=== PATIENT | male | born 1935 | race Caucasian/White ===

== ENCOUNTER → 2018-02-01 | Outpatient (CLI) | payer MEDICARE ==
[~2018-02-01] MED LIST: ALEVE; CRS350T PO; GLUC-113 PO; HYDR-34 PO; NAPR220C11 PO; OXYC-12 PO; OXYC-272 PO; S-AD400T2 PO; [UNRECOGNIZED DRUG - CODE]; [UNRECOGNIZED DRUG - OTHER]
--- NOTE | 2018-02-01 14:13 | Diagnostic Imaging Report ---
PROCEDURE: MRI lumbar spine. TECHNIQUE: Multiplanar, multisequence MRI of the lumbar spine was performed without contrast. INDICATION: Prior history of lumbar surgery x7. Patient currently complaining of right-sided knee pain. Correlation is made with prior MRI of the lumbar spine performed on 07/25/2011. FINDINGS: Right convexity lumbar scoliotic curvature is noted. There is straightening of the normal lordotic curvature. Further surgery has occurred to the lumbar spine since the prior MRI from 2011. There now appears to be postop changes of posterior instrumented fusion with vertical stabilization rods and pedicle screws extending from L2-S2. Anterior lumbar interbody fusion is also seen at the L5-S1 level. Hardware does create moderate amount of artifact. Severe multilevel degenerative disc disease is seen with complete loss of the disc spaces and desiccation as well as marginal osteophyte formation. No acute compression fracture is seen. No geographic marrow lesion is detected. Conus is unremarkable at approximately T12-L1 level. Note is made of a fluid collection in the surgical bed at the L5-S1 level measuring 5.7 cm cephalocaudal x 2.6 cm AP x 4.0 cm transverse. This most likely represents a postsurgical seroma. No mass effect upon the thecal sac is identified. T11-T12: Broad based disc/osteophyte complex flattens the ventral thecal sac. There is moderate central canal narrowing noted. There also appears to be bilateral neuroforaminal stenosis, right greater. T12-L1: Ligamentous thickening and broad-based disc/osteophyte complex does result in moderate central canal narrowing. There is also moderate right neuroforaminal stenosis. L1-L2: There is ligamentous thickening and broad-based disc/osteophyte complex creating moderate trefoil stenosis to the canal. There also appears to be moderate right neuroforaminal stenosis as well as bilateral lateral recess stenosis. L2-L3: Central canal appears patent. Neuroforamina are patent. There may be narrowing of the lateral recesses bilaterally. L3-L4: Central canal appears patent. Neuroforamina are somewhat obscured by hardware artifact. L4-L5: Central canal is patent. Neuroforamina are obscured. There may be moderate narrowing present. L5-S1: Central canal is patent. Neuroforamina are somewhat obscured but no gross abnormality is seen. Paraspinous tissues demonstrate probable large cyst involving the lower pole of the left kidney. IMPRESSION: Since prior study, patient has undergone posterior instrumented fusion extending from L2-S2. There is multilevel central canal and neuroforaminal stenosis described level by level above. Findings are consistent with adjacent level disease. No acute compression fracture is identified. Dictated by: Dictated on workstation # [id number]
== END ==
LOC: RAD 12:49
PROVIDERS: ATTEND Orthopaedic Surgery
DX: M48.05 Spinal stenosis, thoracolumbar region (principal); M48.07 Spinal stenosis, lumbosacral region; M99.02 Segmental and somatic dysfunction of thoracic region; M41.86 Other forms of scoliosis, lumbar region; M51.16 Intervertebral disc disorders with radiculopathy, lumbar region; Z98.1 Arthrodesis status
CPT/HCPCS: 72148

== ENCOUNTER → 2018-02-12 | Outpatient (CLI) | payer MEDICARE ==
[~2018-02-12] MED LIST changes: +CATHETER FLUSH 10 ML SYR IV PRN
--- NOTE | 2018-02-12 15:39 | Diagnostic Imaging Report ---
INDICATION: Right knee pain. 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 TECHNIQUE: Patient was administered 26.5 mCi technetium 99m MDP intravenously and dynamic blood flow, blood pool and delayed imaging over the bilateral knees was performed. FINDINGS: There is symmetric perfusion to both knees. Blood pool activity appears to be symmetric. There is photopenia overlying both knees consistent with bilateral knee arthroplasties. Delayed images do show small focus of increased uptake in the right knee on the medial side, in the region of the right femoral epicondyle. No other abnormal foci of tracer accumulation are seen. IMPRESSION: No scintigraphic evidence of infection. There is a focus of uptake noted in the right knee in the region of the right femoral epicondyle, only seen on the delayed images. Correlation with plain films would be useful. Dictated by: Dictated on workstation # [id number]
== END ==
LOC: CARD 10:42
PROVIDERS: ATTEND Orthopaedic Surgery
DX: T84.032A Mechanical loosening of internal right knee prosthetic joint, initial encounter (principal)
CPT/HCPCS: 78315

== ENCOUNTER → 2018-12-25 | Outpatient (CLI) | payer MEDICARE ==
[~2018-12-25] MED LIST changes: -CATHETER FLUSH 10 ML SYR IV PRN
--- NOTE | 2018-12-25 11:51 | Diagnostic Imaging Report ---
EXAMINATION: Magnetic resonance imaging of the right shoulder without contrast. DATE: December 25, 2018. COMPARISON: None. HISTORY: 83-year-old male, right shoulder pain. Injury last week. TECHNIQUE: Magnetic Resonance Imaging sequences were performed of the shoulder without contrast. FINDINGS: ROTATOR CUFF, LIGAMENTS, TENDONS, AND MUSCLES: There is an anchor in the superior humeral head in the region of the supraspinatus tendon insertion. There is a full-thickness full width tear of the supraspinatus tendon with tendon retraction to the level of the superior humeral head. There is a full-thickness fullwidth tear the infraspinatus tendon with tendon retraction also to the level of the superior humeral head. The teres minor tendon is intact. The subscapularis tendon is intact. There is prominent edema like signal in the infraspinatus muscle most suspicious for low-grade muscle strain. Components of early denervation or edema would be difficult to exclude although thought less likely. There is mild fatty atrophy of the teres minor muscle. LONG HEAD OF BICEPS: The long of the biceps tendon is not well-seen in its intra-articular segment. The tendon may be torn and retracted within the bicipital groove. The long head of biceps tendon is normally positioned in the bicipital groove. The patient also could be status post biceps tenodesis. Recommend correlation with past surgical history. GLENOHUMERAL JOINT: The humeral head is well positioned relative to the glenoid. There is no definite discrete labral tear on non-arthrogram evaluation. There is no identified paralabral cyst. There is mild glenohumeral cartilage thinning with superficial irregularity of the cartilage. There is no joint effusion. ACROMIOCLAVICULAR JOINT: The acromioclavicular joint is normally aligned. The coracoclavicular and coracoacromial ligaments are intact. There are severe acromioclavicular degenerative changes with osteophytes extending approximately 6 mm below the joint margin. BONE: The bones all have normal configuration. The bone marrow signal is within normal limits. Specifically, negative for fracture, osteomyelitis, osteonecrosis, or marrow replacing process. BURSAE AND SOFT TISSUES: There is fluid in the subacromial subdeltoid bursa compatible with the full-thickness rotator cuff tendon tears, bursitis, and/or recent injection. There is a small amount of fluid extending above the level of the acromioclavicular joint likely relating to an early geyser measuring 2.1 x 0.7 x 0.7 cm in size. IMPRESSION: 1. Full-thickness fullwidth tears of the supraspinatus and infraspinatus tendons with tendon retraction to the level of the superior humeral head. No fatty atrophy of either muscle. Prominent edema like signal in the infraspinatus muscle likely reflects low-grade muscle strain. 2. Severe acromioclavicular degenerative changes with 5 mm undersurface osteophytes. 3. 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 4. The long of the biceps tendon is not well seen in its intra-articular segment and could be torn and retracted within the bicipital groove. The patient also could be status post biceps tenodesis. Recommend correlation with past surgical history. 5. No acute fracture, bone contusion, or evidence of osteonecrosis. Dictated by: Dictated on workstation # [id number]
== END ==
LOC: RAD 09:16
PROVIDERS: ATTEND Nurse Practitioner
DX: S46.011A Strain of muscle(s) and tendon(s) of the rotator cuff of right shoulder, initial encounter (principal); M19.011 Primary osteoarthritis, right shoulder; M25.711 Osteophyte, right shoulder
CPT/HCPCS: 73221

== ENCOUNTER 2019-01-13 09:48 | Outpatient (CLI) | payer MEDICARE ==
[~2019-01-13] VITALS: Ht 188 cm; Wt 102.8 kg
[2019-01-13 10:02] VITALS: BP 169/80
[2019-01-15] MEDS ORDERED: CYAN50008 PO (10:49)
[2019-01-15] MEDS ORDERED: NAPR220T66 PO (10:49)
[2019-01-15] MEDS ORDERED: ACET-2267 PO (10:49)
[2019-01-15] MEDS ORDERED: ACET-2650 PO (10:49)
[2019-01-15] MEDS ORDERED: OXYC1TAB87 PO (14:37)
== END 2019-01-13 12:41 | disposition home or self-care (01) ==
LOC: PREOP 09:48
PROVIDERS: ATTEND Orthopaedic Surgery
DX: Z01.818 Encounter for other preprocedural examination (principal)
CPT/HCPCS: 87081

== ENCOUNTER 2019-03-26 13:41 | Outpatient (RCR) | payer MEDICARE ==
[~2019-03-26 13:41] MED LIST changes: +ACET-2267 PO; +ACET-2650 PO; +CYAN50008 PO; +NAPR220T66 PO; +OXYC1TAB87 PO
== END 2019-03-26 17:00 | disposition home or self-care (01) ==
PROVIDERS: ATTEND Orthopaedic Surgery
DX: M25.511 Pain in right shoulder (principal); Z98.890 Other specified postprocedural states

== ENCOUNTER 2019-05-14 06:15 | Outpatient (CLI) | payer MEDICARE ==
[~2019-05-14] VITALS: Ht 182.9 cm; Wt 111.8 kg
== END 2019-05-14 10:53 | disposition home or self-care (01) ==
LOC: PREOP 06:15
PROVIDERS: ATTEND Surgery
DX: Z01.818 Encounter for other preprocedural examination (principal)

== ENCOUNTER 2019-06-05 05:29 | Outpatient (CLI) | payer MEDICARE ==
[~2019-06-05] VITALS: Ht 175.3 cm; Wt 110.0 kg
== END 2019-06-05 11:08 | disposition home or self-care (01) ==
LOC: PREOP 05:29
PROVIDERS: ATTEND Surgery
DX: Z01.818 Encounter for other preprocedural examination (principal)

== ENCOUNTER 2019-06-06 10:48 | Day surgery (SDC) | payer MEDICARE ==
[~2019-06-06] VITALS: Ht 175.3 cm; Wt 110.0 kg
[2019-06-06] VITALS (8 sets, daily range): BP systolic 118–176; BP diastolic 70–110
[2019-06-06] MEDS ORDERED: FLEET ENEMA ADULT 1 EA BTL PR PRN (11:15)
--- NOTE | 2019-06-06 11:16 | Progress Note-Pre Operative ---
Pre-Operative Progress Note H&P Reviewed The H&P was reviewed, patient examined and no changes noted. Date Seen by Provider: Jun 06, 2019 Time Seen by Provider: 11:16 Date H&P Reviewed: Jun 06, 2019 Time H&P Reviewed: 11:16 Pre-Operative Diagnosis: anal mass DAVIN DELACRUZ DO Jun 06, 2019 11:16
[2019-06-06] MEDS ORDERED: LACTATED RINGERS 1,000 ML IV PRN (11:17)
[2019-06-06] MEDS ORDERED: PROPOFOL INJECTION 50 ML IV ONE (11:23)
--- NOTE | 2019-06-06 13:11 | Progress Note-Post Operative ---
Post-Operative Progess Note Surgeon (s)/Cot Assembler (s) Surgeon DAVIN DELACRUZ DO Cot Assembler: na Pre-Operative Diagnosis anal mass Post-Operative Diagnosis same Procedure & Operative Findings Date of Procedure 06/06/19 Procedure Performed/Findings exam under anesthesia, flex sig, biopsies of anal mass Anesthesia Type mac Estimated Blood Loss Estimated blood loss (mL): min Specimens/Packing Specimens Removed anal mass DAVIN DELACRUZ DO Jun 06, 2019 13:11
--- NOTE | 2019-06-06 13:13 | Discharge Inst-Simple/Standard ---
Discharge Inst-Standard Patient Instructions/Follow Up Plan of Care/Instructions/FU: 1 week Tasia Activity as Tolerated: Yes Discharge Diet: Regular Diet Other Inst to Patient Follow up Appt: Make appointment for 1 week. Instructions: You have a special dressing just inside the anus, allow this to stay as long as you can. You will pass it like a bowel movement later. Symptoms to Report: Appetite Changes, Extremity Discoloration, Numbness/Tingling, Swelling Incre ased, Bleeding Excessive, Eyesight Changes, Pain Increased, Urine Color Change, Constipation(Persistent), Fever over 101 degree F, Pain/Pressure in chest, Urinating Difficulty, Cough Up/Vomit Blood, Heart Beat Irreg/Pounding, Pain/Pressure in jaw, Vaginal Bleeding Increase, Cramps in feet or legs, Lightheadedness, Pain/Pressure in shoulder, Diarrhea(Persistent), Memory Changes Suddenly, Questions/Concerns, Weight gain consecutive days, Dizziness/Fainting, Nausea/Vomiting, Shortness of Breath, Weight gain over 2 pounds If questions or concerns contact your physician Or seek help at emergency department. DAVIN DELACRUZ DO Jun 06, 2019 13:13
--- NOTE | 2019-06-06 21:50 | OPERATIVE REPORT ---
DATE OF SERVICE: 06/06/2019 PREOPERATIVE DIAGNOSIS: Anal mass. POSTOPERATIVE DIAGNOSIS: Anal mass. PROCEDURE: Exam under anesthesia, flexible sigmoidoscopy, biopsies of anal mass. SURGEON: Davin Dozier DO ANESTHESIA: MAC. ESTIMATED BLOOD LOSS: Minimal. COMPLICATIONS: None. 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 It was recommended that further biopsies to be taken. The patient understands risks and benefits of procedure and wished to proceed with procedure. Consent was signed in the chart. DESCRIPTION OF PROCEDURE: The patient was taken to the operating suite, placed in lithotomy position. Timeout was performed. Scope was inserted into the rectum and advanced through the rectum into the sigmoid, noting no other pathology. Scope was slowly retracted back through the sigmoid back into the rectum, where it was also retroflexed. A small piece of mass was visualized just at the anorectal junction. Biopsy of this area was obtained. Scope was returned to its normal position, slowly withdrawn through the anus taking multiple biopsies. Digital rectal exam was done demonstrating a large left-sided inguinal mass. Retractor was inserted through the anus and the mass was visualized and multiple biopsies were continued to be obtained from the anal mass. Once the biopsies were obtained, Gelfoam with Surgicel was placed into the anal canal to apply pressure to help with hemostasis. The patient tolerated procedure well without any complications. He was taken to the recovery room in stable condition. Job ID: [id number] DocumentID: [id number] Dictated Date: 06/06/2019 13:16:40 Director Instructional Material Date: 06/06/2019 21:49:44 Dictated By: DAVIN DOZIER DO
== END 2019-06-06 14:20 | disposition home or self-care (01) ==
LOC: SDC 10:48
PROVIDERS: ATTEND Surgery
DX: C21.0 Malignant neoplasm of anus, unspecified (principal); Z11.2 Encounter for screening for other bacterial diseases; Z87.891 Personal history of nicotine dependence; E66.9 Obesity, unspecified; Z68.35 Body mass index [BMI] 35.0-35.9, adult; Z96.653 Presence of artificial knee joint, bilateral; Z96.641 Presence of right artificial hip joint; Z96.611 Presence of right artificial shoulder joint
CPT/HCPCS: 87081

== ENCOUNTER → 2019-06-09 | Outpatient (CLI) | payer MEDICARE ==
[~2019-06-09] MED LIST changes: +GADOBUTROL 10 MMOL/10 ML (GADAVIST) VIAL IV ONE
--- NOTE | 2019-06-10 09:49 | Diagnostic Imaging Report ---
PROCEDURE: MRI pelvis with and without contrast. TECHNIQUE: Multiplanar, multisequence MRI of the pelvis was performed with and without contrast. INDICATION: Anal mass. COMPARISON: CT abdomen and pelvis of 05/20/2019. FINDINGS: Within the anal canal, there is a somewhat pedunculated ovoid T2 hyperintense mass located along the left leilani-aspect of the anal canal. This measures approximately 3.6 x 1.7 x 4.2 cm and extends over the entire craniocaudal length of the anal canal up to level of the anorectal junction. The mass has smooth margins and inferior margin of the mass is at the level the anal verge. On postcontrast imaging, there is minimal peripheral rim enhancement of the mass. There is no invasion into the external anal sphincter. There is potential involvement of the internal anal sphincter. The internal anal sphincter plane remains normal. No lymphadenopathy within the mesorectal fat. T2 hyperintense mass with thick rim measures 5.5 x 3.3 cm. No additional lymphadenopathy is appreciated. IMPRESSION: 1. Circumscribed mass within the anal canal likely arises from the mucosa along the anterior and/or left leilani-aspect. No invasion of the intersphincteric plane or external anal sphincter. Given the circumscribed nature and lack of invasive features, differential considerations would include a low-grade carcinoma of the anal canal, gastrointestinal stromal tumor (GIST) or potentially leiomyoma. Correlation with physical exam and biopsy is advised. 2. Left inguinal thick-walled fluid collection/necrotic lymph node is stable. Correlation with patient's surgical history is advised. 3. No mesorectal lymphadenopathy. Dictated by: Dictated on workstation # [id number]
== END ==
LOC: RAD 09:21
PROVIDERS: ATTEND Internal Medicine Hematology & Oncology
DX: K62.89 Other specified diseases of anus and rectum (principal)
CPT/HCPCS: 72197

== ENCOUNTER 2019-06-23 10:02 | Outpatient (CLI) | payer MEDICARE ==
[~2019-06-23] VITALS: Ht 177.8 cm; Wt 110.0 kg
[~2019-06-23 10:02] MED LIST changes: -GADOBUTROL 10 MMOL/10 ML (GADAVIST) VIAL IV ONE
== END 2019-06-23 10:19 | disposition home or self-care (01) ==
LOC: PREOP 10:02
PROVIDERS: ATTEND Surgery
DX: Z01.818 Encounter for other preprocedural examination (principal)

== ENCOUNTER 2019-06-26 10:47 | Day surgery (SDC) | payer MEDICARE ==
[2019-06-26] VITALS (7 sets, daily range): BP systolic 133–168; BP diastolic 53–72
[~2019-06-26] VITALS: Ht 177.8 cm; Wt 110.0 kg
[2019-06-26] MEDS ORDERED: proPOfol 200 MG/20 ML (DIPRIVAN) VIAL IV ONE (10:51)
[2019-06-26] MEDS ORDERED: LIDOCAINE PF 2% 5 ML (XYLOCAINE) VIAL ONE (10:51)
[2019-06-26] MEDS ORDERED: LACTATED RINGERS 1,000 ML IV PRN (10:55)
[2019-06-26] MEDS ORDERED: 0.9% SODIUM CHLORIDE PF INJ 20 ML VIAL ONE (11:00)
[2019-06-26] MEDS ORDERED: HEParin (CENTRAL IV FLUSH) 500 UNIT/5 ML SYR ONE (11:00)
[2019-06-26] MEDS ORDERED: BUP/EPI 0.5% 1:200,000 (SENSORCAINE) 30 ML VIAL ONE (11:00)
[2019-06-26] MEDS ORDERED: ceFAZolin 2 GM/50 ML NS 50 ML IV ONE (11:00)
[2019-06-26] MEDS ORDERED: MIDAZOLAM 2 MG/2 ML (VERSED) VIAL ONE (11:11)
--- NOTE | 2019-06-26 11:30 | Progress Note-Pre Operative ---
Pre-Operative Progress Note H&P Reviewed The H&P was reviewed, patient examined and no changes noted. Date Seen by Provider: Jun 26, 2019 Time Seen by Provider: 11: Date H&P Reviewed: Jun 26, 2019 Time H&P Reviewed: : Pre-Operative Diagnosis: anal cancer DAVIN DELACRUZ DO Jun 26, 2019 11:30
--- NOTE | 2019-06-26 11:47 | NUR ---
Escorted pt's to his room. She reminded me that I visited her in the hospital 2 years ago as she recovered from a stroke. Offered supportive presence.
--- NOTE | 2019-06-26 12:08 | Progress Note-Post Operative ---
Post-Operative Progess Note Surgeon (s)/Credit Clerk (s) Surgeon DAVIN DELACRUZ DO Credit Clerk: NA Pre-Operative Diagnosis anal cancer Post-Operative Diagnosis SAME Procedure & Operative Findings Date of Procedure 06/26/19 Procedure Performed/Findings RIGHT IJ U/S GUIDED PORT PLACEMENT Anesthesia Type MAC C GEN Estimated Blood Loss Estimated blood loss (mL): MIN Specimens/Packing Specimens Removed NA DAVIN DELACRUZ DO Jun 26, 2019 12:08
--- NOTE | 2019-06-26 12:14 | Discharge Inst-Simple/Standard ---
Discharge Inst-Standard Patient Instructions/Follow Up Plan of Care/Instructions/FU: 2 WEEKS JAYME Activity as Tolerated: No Discharge Diet: Regular Diet Other Inst to Patient Follow up Appt: Make appointment for 2 week. Instructions: No lifting greater than 10 pounds. No strenuous activity. May shower in 24 hours, no tub bath or soaking. Use incentive spirometer at home as directed. No Smoking Skin/Wound Care: May remove bandages IN 24 HOURS, YOU HAVE SPECIAL GLUE OVER INCISIONS IT WILL FALL OFF ON ITS OWN. Symptoms to Report: Appetite Changes, Extremity Discoloration, Numbness/Tingling, Swelling Increased, Bleeding Excessive, Eyesight Changes, Pain Increased, Urine Color Change, Constipation(Persistent), Fever over 101 degree F, Pain/Pressure in chest, Urinating Difficulty, Cough Up/Vomit Blood, Heart Beat Irreg/Pounding, Pain/Pressure in jaw, Vaginal Bleeding Increase, Cramps in feet or legs, Lightheadedness, Pain/Pressure in shoulder, Diarrhea(Persistent), Memory Changes Suddenly, Questions/Concerns, Weight gain consecutive days, Dizziness/Fainting, Nausea/Vomiting, Shortness of Breath, Weight gain over 2 pounds If questions or concerns contact your physician Or seek help at emergency department. DAVIN DELACRUZ DO Jun 26, 2019 12:14
[2019-06-26] MEDS ORDERED: ONDANSETRON 4 MG/2 ML (SDV) Z0FRAN IVP PRN (12:15)
[2019-06-26] MEDS ORDERED: HYDROmorphone 2 MG/ML VIAL (DILAUDID) IV ONE (12:15)
--- NOTE | 2019-06-26 12:41 | Diagnostic Imaging Report ---
INDICATION: Postop Port-A-Cath placement. TECHNIQUE: Frontal chest obtained at 12:32 p.m. and compared to 11/21/2012. FINDINGS: Heart is borderline in size. Mediastinal silhouette is unremarkable. The lungs are clear. There is no pneumothorax or pleural fluid. Right-sided Port-A-Cath is seen with catheter entering the right internal jugular vein and catheter tip overlying the right brachiocephalic vein. IMPRESSION: Port-A-Cath in place, as above. No pneumothorax or pleural fluid following device placement. Dictated by: Dictated on workstation # [id number]
--- NOTE | 2019-06-26 13:04 | Diagnostic Imaging Report ---
INDICATION: Fluoroscopy for port placement. Fluoroscopy was provided in the OR during right chest wall port placement. 33 seconds of fluoroscopy was utilized. A single image demonstrates a right chest wall port with tip overlying the SVC. IMPRESSION: Fluoroscopy for port placement. Dictated by: Dictated on workstation # [id number]
--- NOTE | 2019-06-27 00:14 | OPERATIVE REPORT ---
DATE OF SERVICE: 06/26/2019 PREOPERATIVE DIAGNOSIS: Anal cancer. POSTOPERATIVE DIAGNOSIS: Anal cancer. PROCEDURE: Right internal jugular vein ultrasound-guided port placement. SURGEON: Ra Dozier DO ANESTHESIA: MAC with local. ESTIMATED BLOOD LOSS: Minimal. COMPLICATIONS: None. INDICATIONS: The patient is an 83-year-old male with recent diagnosis of anal cancer. He understands risks and benefits of port placement and wishes to proceed. Consent was signed and on the chart. DESCRIPTION OF PROCEDURE: The patient was prepped and draped in sterile fashion. Timeout was performed. Local anesthetic was infiltrated in the right neck. Ultrasound was used to locate the right internal jugular vein and the vein was then accessed under ultrasound guidance with micro access needle. Dark nonpulsatile blood was withdrawn. Micro access wire was inserted and the needle was removed. Fluoroscopy assured proper placement. A #11 blade scalpel was used to make a small skin incision at the insertion site of the guidewire. A dilator was then advanced over the wire and the guidewire and the dilator were removed. The sheath was left behind. The regular guidewire was inserted through the sheath and the sheath was then removed. Fluoroscopy assured proper placement. This was then secured. Local anesthetic was infiltrated on to the right chest. A pocket was created with a #15 blade scalpel and blunt dissection. Over the guidewire, the dilator sheath was then advanced over the guidewire and the dilator and the wire were removed. The Groshong catheter was inserted through the sheath and the sheath was then removed. The wire was then removed from the Groshong catheter. The catheter was then tunneled from the insertion point down to the right chest and this was then cut to length using fluoroscopy. The port was then attached in the usual fashion and it was placed within the pocket. The port was then accessed, nonpulsatile blood was withdrawn and the port was then flushed with saline and then heparin. The subcutaneous tissues were then reapproximated using 3-0 Vicryl. Skin was then closed using Skin Affix after the area was washed and dried and also Skin Affix was placed over the incision on the neck. The patient tolerated procedure well without any complications and taken to the recovery room in stable condition. Chest x-ray is pending. Job ID: [id number] DocumentID: [id number] Dictated Date: 06/26/2019 19:22:44 [employer] Date: 06/27/2019 00:14:04 Dictated By: DO RANDI HERNANDEZ
== END 2019-06-26 13:25 | disposition home or self-care (01) ==
LOC: SDC 10:47
PROVIDERS: ATTEND Surgery
DX: C21.0 Malignant neoplasm of anus, unspecified (principal); K62.5 Hemorrhage of anus and rectum; Z79.899 Other long term (current) drug therapy; Z79.82 Long term (current) use of aspirin; Z87.891 Personal history of nicotine dependence; Z90.89 Acquired absence of other organs; Z80.9 Family history of malignant neoplasm, unspecified; Z83.3 Family history of diabetes mellitus
CPT/HCPCS: 71045; 87081

== ENCOUNTER → 2019-06-30 | Outpatient (CLI) | payer MEDICARE ==
--- NOTE | 2019-06-28 09:31 | Anesthesia-General Post-Op ---
MAC Patient Condition Mental Status/LOC: Same as Preop Cardiovascular: Satisfactory Nausea/Vomiting: Absent Respiratory: Satisfactory Pain: Controlled Complications: Absent Post Op Complications Complications None Follow Up Care/Instructions Patient Instructions None needed. Anesthesiology Discharge Order Discharge Order Patient is doing well, no complaints, stable vital signs, no apparent adverse anesthesia problems. No complications reported per nursing. SEGUN MACEDO CRNA Jun 28, 2019 09:31
[~2019-06-30] MED LIST changes: +HOLD METFORMIN - RECEIVED CONTRAST 20 ML VIAL IV SCH; +IOHEXOL 350 MG/ML 100 ML (OMNIPAQUE 350) VIAL IV ONE; +NS 100 ML (IVPB) BAG IV ONE
--- NOTE | 2019-06-30 13:47 | Diagnostic Imaging Report ---
PROCEDURE: CT chest with contrast only. TECHNIQUE: Multiple contiguous axial images were obtained through the chest after administration of intravenous contrast. Auto Exposure Controls were utilized during the CT exam to meet ALARA standards for radiation dose reduction. DATE: June 30, 2019. COMPARISON: Chest radiograph June 26, 2019. INDICATION: 83-year-old male, history of anal malignancy. Evaluation for metastatic disease. FINDINGS: There is a 4 mm calcified benign left lower lobe granuloma. There is no identified noncalcified pulmonary nodule. There is no lung mass. There is no otherwise identified focal airspace consolidation. There is no pneumothorax. There is no pleural effusion. The central airways are patent. There are coronary artery calcifications. There are additional areas of atherosclerotic disease. The heart is not enlarged. There is no pericardial effusion. There is no identified pulmonary embolus. There is no identified abnormally enlarged mediastinal, hilar, or axillary lymph node meeting CT size criteria for adenopathy. The patient is status post cholecystectomy. There is a benign right renal cyst on axial image 138 which measures 3.0 cm in size. There is an incompletely imaged cystic lesion in the left kidney measuring up to 6.0 cm in size which has a thin internal septation. Imaging appearances consistent with a benign Bosniak category 2 benign renal cyst in its imaged portions; however, the lesion cannot be definitively characterized as it is incompletely imaged. There are postoperative changes of the lumbar spine. There are multilevel advanced degenerative changes of the thoracic spine. There are anchors in the right and left humeral heads. There is no identified and concerning bone lesion. IMPRESSION: CT CHEST. 1. No evidence of metastatic disease to the chest. Dictated by: Dictated on workstation # [id number]
== END ==
LOC: RAD 09:17
PROVIDERS: ATTEND Surgery
DX: C21.0 Malignant neoplasm of anus, unspecified (principal)
CPT/HCPCS: 71260

== ENCOUNTER 2019-08-15 08:30 | Outpatient (RCR) | payer MEDICARE ==
[2019-06-30 09:53] LABS: BASOPHILS % (AUTO) 1 % (0-10); EOSINOPHILS # (AUTO) 0.3 10^3/uL (0.0-0.3); EOSINOPHILS % (AUTO) 4 % (0-10); HEMATOCRIT 41 % (40-54); HEMOGLOBIN 13.2 G/DL (13.3-17.7); LYMPHOCYTES # (AUTO) 2.2 X 10^3 (1.0-4.0); LYMPHOCYTES % (AUTO) 31 % (12-44); MEAN CORPUSCULAR HEMOGLOBIN 31 PG (25-34); MEAN CORPUSCULAR HGB CONC 32 G/DL (32-36); MEAN CORPUSCULAR VOLUME 97 FL (80-99); MEAN PLATELET VOLUME 12.6 FL (7.4-10.4); MONOCYTES # (AUTO) 0.6 X 10^3 (0.0-1.0); MONOCYTES % (AUTO) 9 % (0-12); NEUTROPHILS # (AUTO) 4.1 X 10^3 (1.8-7.8); NEUTROPHILS % (AUTO) 56 % (42-75); PLATELET COUNT 143 10^3/uL (130-400); RED CELL DISTRIBUTION WIDTH 13.8 % (10.0-14.5); WHITE BLOOD COUNT 7.3 10^3/uL (4.3-11.0)
[2019-06-30 10:10] LABS: ALBUMIN 4.3 GM/DL (3.2-4.5); BILIRUBIN,TOTAL 0.6 MG/DL (0.1-1.0); CALCIUM 9.8 MG/DL (8.5-10.1); CREATININE SERUM 1.32 MG/DL (0.60-1.30); MAGNESIUM 2.5 MG/DL (1.6-2.4); POTASSIUM 4.8 MMOL/L (3.6-5.0); TOTAL PROTEIN 7.7 GM/DL (6.4-8.2)
[2019-07-14 14:43] LABS: BASOPHILS % (AUTO) 1 % (0-10); EOSINOPHILS # (AUTO) 0.3 10^3/uL (0.0-0.3); EOSINOPHILS % (AUTO) 4 % (0-10); HEMATOCRIT 38 % (40-54); LYMPHOCYTES # (AUTO) 2.4 X 10^3 (1.0-4.0); LYMPHOCYTES % (AUTO) 34 % (12-44); MEAN CORPUSCULAR HEMOGLOBIN 31 PG (25-34); MEAN CORPUSCULAR HGB CONC 32 G/DL (32-36); MEAN CORPUSCULAR VOLUME 97 FL (80-99); MONOCYTES # (AUTO) 0.7 X 10^3 (0.0-1.0); MONOCYTES % (AUTO) 10 % (0-12); NEUTROPHILS # (AUTO) 3.7 X 10^3 (1.8-7.8); NEUTROPHILS % (AUTO) 52 % (42-75); PLATELET COUNT 147 10^3/uL (130-400); RED CELL DISTRIBUTION WIDTH 13.9 % (10.0-14.5); WHITE BLOOD COUNT 7.2 10^3/uL (4.3-11.0)
[2019-07-14 15:11] LABS: BILIRUBIN,TOTAL 0.3 MG/DL (0.1-1.0); CALCIUM 9.1 MG/DL (8.5-10.1); CREATININE SERUM 1.61 MG/DL (0.60-1.30); POTASSIUM 4.9 MMOL/L (3.6-5.0); TOTAL PROTEIN 7.4 GM/DL (6.4-8.2)
[2019-07-21 09:14] LABS: BASOPHILS % (AUTO) 0 % (0-10); EOSINOPHILS # (AUTO) 0.2 10^3/uL (0.0-0.3); EOSINOPHILS % (AUTO) 4 % (0-10); HEMATOCRIT 36 % (40-54); HEMOGLOBIN 11.3 G/DL (13.3-17.7); LYMPHOCYTES # (AUTO) 0.8 X 10^3 (1.0-4.0); LYMPHOCYTES % (AUTO) 18 % (12-44); MEAN CORPUSCULAR HEMOGLOBIN 31 PG (25-34); MEAN CORPUSCULAR HGB CONC 32 G/DL (32-36); MEAN CORPUSCULAR VOLUME 98 FL (80-99); MEAN PLATELET VOLUME 12.2 FL (7.4-10.4); MONOCYTES # (AUTO) 0.1 X 10^3 (0.0-1.0); MONOCYTES % (AUTO) 2 % (0-12); NEUTROPHILS # (AUTO) 3.4 X 10^3 (1.8-7.8); NEUTROPHILS % (AUTO) 76 % (42-75); PLATELET COUNT 111 10^3/uL (130-400); WHITE BLOOD COUNT 4.5 10^3/uL (4.3-11.0)
[2019-07-21 09:29] LABS: CREATININE SERUM 1.29 MG/DL (0.60-1.30); POTASSIUM 4.7 MMOL/L (3.6-5.0)
[2019-07-28 09:13] LABS: BASOPHILS % (AUTO) 0 % (0-10); EOSINOPHILS # (AUTO) 0.6 10^3/uL (0.0-0.3); EOSINOPHILS % (AUTO) 20 % (0-10); HEMATOCRIT 33 % (40-54); HEMOGLOBIN 10.5 G/DL (13.3-17.7); LYMPHOCYTES # (AUTO) 0.8 X 10^3 (1.0-4.0); LYMPHOCYTES % (AUTO) 30 % (12-44); MEAN CORPUSCULAR HEMOGLOBIN 31 PG (25-34); MEAN CORPUSCULAR HGB CONC 32 G/DL (32-36); MEAN CORPUSCULAR VOLUME 97 FL (80-99); MEAN PLATELET VOLUME 11.4 FL (7.4-10.4); MONOCYTES # (AUTO) 0.4 X 10^3 (0.0-1.0); MONOCYTES % (AUTO) 14 % (0-12); NEUTROPHILS % (AUTO) 36 % (42-75); PLATELET COUNT 42 10^3/uL (130-400); RED CELL DISTRIBUTION WIDTH 13.1 % (10.0-14.5); WHITE BLOOD COUNT 2.8 10^3/uL (4.3-11.0)
[2019-07-28 09:26] LABS: CALCIUM 8.9 MG/DL (8.5-10.1); CREATININE SERUM 1.38 MG/DL (0.60-1.30); POTASSIUM 4.3 MMOL/L (3.6-5.0)
[2019-08-04 08:59] LABS: BASOPHILS % (AUTO) 1 % (0-10); EOSINOPHILS # (AUTO) 0.2 10^3/uL (0.0-0.3); EOSINOPHILS % (AUTO) 5 % (0-10); HEMATOCRIT 33 % (40-54); HEMOGLOBIN 10.6 G/DL (13.3-17.7); LYMPHOCYTES # (AUTO) 0.7 X 10^3 (1.0-4.0); LYMPHOCYTES % (AUTO) 17 % (12-44); MEAN CORPUSCULAR HEMOGLOBIN 31 PG (25-34); MEAN CORPUSCULAR HGB CONC 32 G/DL (32-36); MEAN CORPUSCULAR VOLUME 97 FL (80-99); MEAN PLATELET VOLUME 11.1 FL (7.4-10.4); MONOCYTES # (AUTO) 0.8 X 10^3 (0.0-1.0); MONOCYTES % (AUTO) 19 % (0-12); NEUTROPHILS # (AUTO) 2.3 X 10^3 (1.8-7.8); NEUTROPHILS % (AUTO) 58 % (42-75); PLATELET COUNT 168 10^3/uL (130-400); RED CELL DISTRIBUTION WIDTH 14.3 % (10.0-14.5)
[2019-08-04 09:20] LABS: CALCIUM 9.3 MG/DL (8.5-10.1); CREATININE SERUM 1.27 MG/DL (0.60-1.30); POTASSIUM 4.2 MMOL/L (3.6-5.0)
[2019-08-08 08:42] LABS: BASOPHILS % (AUTO) 1 % (0-10); EOSINOPHILS # (AUTO) 0.2 10^3/uL (0.0-0.3); EOSINOPHILS % (AUTO) 4 % (0-10); HEMATOCRIT 32 % (40-54); HEMOGLOBIN 10.4 G/DL (13.3-17.7); LYMPHOCYTES # (AUTO) 0.5 X 10^3 (1.0-4.0); LYMPHOCYTES % (AUTO) 11 % (12-44); MEAN CORPUSCULAR HEMOGLOBIN 32 PG (25-34); MEAN CORPUSCULAR HGB CONC 32 G/DL (32-36); MEAN CORPUSCULAR VOLUME 99 FL (80-99); MEAN PLATELET VOLUME 10.7 FL (7.4-10.4); MONOCYTES # (AUTO) 0.6 X 10^3 (0.0-1.0); MONOCYTES % (AUTO) 14 % (0-12); NEUTROPHILS # (AUTO) 3.4 X 10^3 (1.8-7.8); NEUTROPHILS % (AUTO) 72 % (42-75); PLATELET COUNT 202 10^3/uL (130-400); RED CELL DISTRIBUTION WIDTH 14.5 % (10.0-14.5); WHITE BLOOD COUNT 4.8 10^3/uL (4.3-11.0)
[2019-08-08 09:01] LABS: ALBUMIN 3.8 GM/DL (3.2-4.5); BILIRUBIN,TOTAL 0.3 MG/DL (0.1-1.0); CALCIUM 8.9 MG/DL (8.5-10.1); CREATININE SERUM 1.18 MG/DL (0.60-1.30); POTASSIUM 4.1 MMOL/L (3.6-5.0); TOTAL PROTEIN 6.9 GM/DL (6.4-8.2)
[~2019-08-15] VITALS: Ht 175.3 cm; Wt 108.9 kg
[~2019-08-15 08:30] MED LIST changes: +DEXAMETHASONE IV PRN; +FLUOROURACIL IV SCH; -HOLD METFORMIN - RECEIVED CONTRAST 20 ML VIAL IV SCH; -IOHEXOL 350 MG/ML 100 ML (OMNIPAQUE 350) VIAL IV ONE; +MITOMYCIN IV SCH; -NS 100 ML (IVPB) BAG IV ONE; +NS IV 1000 ML (CANCER CTR) IV SCH; +NS IV SCH; +ONDANSETRON IV PRN; +[UNRECOGNIZED DRUG - OTHER] IV PRN
[2019-08-18 09:04] LABS: BASOPHILS % (AUTO) 0 % (0-10); EOSINOPHILS # (AUTO) 0.2 10^3/uL (0.0-0.3); EOSINOPHILS % (AUTO) 13 % (0-10); HEMATOCRIT 32 % (40-54); HEMOGLOBIN 10.5 G/DL (13.3-17.7); LYMPHOCYTES # (AUTO) 0.1 X 10^3 (1.0-4.0); LYMPHOCYTES % (AUTO) 8 % (12-44); MEAN CORPUSCULAR HEMOGLOBIN 32 PG (25-34); MEAN CORPUSCULAR HGB CONC 33 G/DL (32-36); MEAN CORPUSCULAR VOLUME 98 FL (80-99); MEAN PLATELET VOLUME 11.2 FL (7.4-10.4); MONOCYTES # (AUTO) 0.1 X 10^3 (0.0-1.0); MONOCYTES % (AUTO) 5 % (0-12); NEUTROPHILS # (AUTO) 1.3 X 10^3 (1.8-7.8); NEUTROPHILS % (AUTO) 74 % (42-75); PLATELET COUNT 98 10^3/uL (130-400); RED CELL DISTRIBUTION WIDTH 14.7 % (10.0-14.5); WHITE BLOOD COUNT 1.8 10^3/uL (4.3-11.0)
[2019-08-18 09:23] LABS: CALCIUM 9.1 MG/DL (8.5-10.1); CREATININE SERUM 1.48 MG/DL (0.60-1.30); POTASSIUM 4.2 MMOL/L (3.6-5.0)
== END 2019-08-18 09:28 | disposition home or self-care (01) ==
LOC: ONC 08:30
PROVIDERS: ATTEND Internal Medicine Hematology & Oncology
DX: D01.3 Carcinoma in situ of anus and anal canal (principal)
CPT/HCPCS: 36591; 77290; 77300; 77301; 77307; 77334; 77336; 77338; 77386; 77470; 80048; 80053; 82378; 83735; 85025; 96375; 96409; 96416; 99204; 99213; 99214; J9290

== ENCOUNTER → 2019-08-18 | Outpatient (CLI) | payer MEDICARE ==
[~2019-08-18] MED LIST changes: -DEXAMETHASONE IV PRN; -FLUOROURACIL IV SCH; -MITOMYCIN IV SCH; +NS IV 1000 ML (CANCER CTR) 1,000 ML ONE; -NS IV 1000 ML (CANCER CTR) IV SCH; -NS IV SCH; -ONDANSETRON IV PRN; -[UNRECOGNIZED DRUG - OTHER] IV PRN
== END ==
LOC: ONC 09:30
PROVIDERS: ATTEND Internal Medicine Hematology & Oncology
DX: C21.1 Malignant neoplasm of anal canal (principal); E86.0 Dehydration; D61.811 Other drug-induced pancytopenia; K64.9 Unspecified hemorrhoids; K62.5 Hemorrhage of anus and rectum; K62.89 Other specified diseases of anus and rectum; Z90.49 Acquired absence of other specified parts of digestive tract; Z98.890 Other specified postprocedural states
CPT/HCPCS: 96360

== ENCOUNTER 2019-09-04 09:50 | Outpatient (RCR) | payer MEDICARE ==
[2019-08-21 08:46] LABS: BASOPHILS % (AUTO) 0 % (0-10); EOSINOPHILS # (AUTO) 0.2 10^3/uL (0.0-0.3); EOSINOPHILS % (AUTO) 13 % (0-10); HEMATOCRIT 31 % (40-54); LYMPHOCYTES # (AUTO) 0.2 X 10^3 (1.0-4.0); LYMPHOCYTES % (AUTO) 17 % (12-44); MEAN CORPUSCULAR HEMOGLOBIN 31 PG (25-34); MEAN CORPUSCULAR HGB CONC 32 G/DL (32-36); MEAN CORPUSCULAR VOLUME 97 FL (80-99); MEAN PLATELET VOLUME 11.2 FL (7.4-10.4); MONOCYTES # (AUTO) 0.2 X 10^3 (0.0-1.0); MONOCYTES % (AUTO) 15 % (0-12); NEUTROPHILS # (AUTO) 0.6 X 10^3 (1.8-7.8); NEUTROPHILS % (AUTO) 55 % (42-75); PLATELET COUNT 64 10^3/uL (130-400); RED CELL DISTRIBUTION WIDTH 14.3 % (10.0-14.5)
[2019-08-21 08:53] LABS: WHITE BLOOD COUNT 1.2 10^3/uL (4.3-11.0)
[2019-08-21 09:11] LABS: ALBUMIN 3.7 GM/DL (3.2-4.5); BILIRUBIN,TOTAL 0.6 MG/DL (0.1-1.0); CALCIUM 8.8 MG/DL (8.5-10.1); CREATININE SERUM 1.44 MG/DL (0.60-1.30); POTASSIUM 3.6 MMOL/L (3.6-5.0); TOTAL PROTEIN 6.9 GM/DL (6.4-8.2)
[2019-08-26 09:06] LABS: BASOPHILS % (AUTO) 0 % (0-10); EOSINOPHILS # (AUTO) 0.3 10^3/uL (0.0-0.3); EOSINOPHILS % (AUTO) 10 % (0-10); HEMATOCRIT 28 % (40-54); HEMOGLOBIN 9.1 G/DL (13.3-17.7); LYMPHOCYTES # (AUTO) 0.3 X 10^3 (1.0-4.0); LYMPHOCYTES % (AUTO) 13 % (12-44); MEAN CORPUSCULAR HEMOGLOBIN 31 PG (25-34); MEAN CORPUSCULAR HGB CONC 32 G/DL (32-36); MEAN CORPUSCULAR VOLUME 97 FL (80-99); MEAN PLATELET VOLUME 11.7 FL (7.4-10.4); MONOCYTES # (AUTO) 0.5 X 10^3 (0.0-1.0); MONOCYTES % (AUTO) 20 % (0-12); NEUTROPHILS # (AUTO) 1.6 X 10^3 (1.8-7.8); NEUTROPHILS % (AUTO) 57 % (42-75); PLATELET COUNT 54 10^3/uL (130-400); RED CELL DISTRIBUTION WIDTH 14.8 % (10.0-14.5); WHITE BLOOD COUNT 2.7 10^3/uL (4.3-11.0)
[2019-08-26 09:25] LABS: CREATININE SERUM 1.33 MG/DL (0.60-1.30); POTASSIUM 3.9 MMOL/L (3.6-5.0)
[~2019-09-04 09:50] MED LIST changes: -NS IV 1000 ML (CANCER CTR) 1,000 ML ONE
[2019-09-04 10:17] LABS: BASOPHILS % (AUTO) 1 % (0-10); EOSINOPHILS % (AUTO) 1 % (0-10); HEMATOCRIT 29 % (40-54); HEMOGLOBIN 9.3 G/DL (13.3-17.7); LYMPHOCYTES # (AUTO) 0.8 X 10^3 (1.0-4.0); LYMPHOCYTES % (AUTO) 20 % (12-44); MEAN CORPUSCULAR HEMOGLOBIN 32 PG (25-34); MEAN CORPUSCULAR HGB CONC 32 G/DL (32-36); MEAN CORPUSCULAR VOLUME 99 FL (80-99); MEAN PLATELET VOLUME 11.5 FL (7.4-10.4); MONOCYTES # (AUTO) 0.6 X 10^3 (0.0-1.0); MONOCYTES % (AUTO) 16 % (0-12); NEUTROPHILS # (AUTO) 2.5 X 10^3 (1.8-7.8); NEUTROPHILS % (AUTO) 62 % (42-75); PLATELET COUNT 244 10^3/uL (130-400); RED CELL DISTRIBUTION WIDTH 16.9 % (10.0-14.5)
[2019-09-04 10:28] LABS: ALBUMIN 3.5 GM/DL (3.2-4.5); POTASSIUM 4.3 MMOL/L (3.6-5.0)
[2019-09-04 10:31] LABS: TOTAL PROTEIN 7.2 GM/DL (6.4-8.2)
[2019-09-04 10:33] LABS: BILIRUBIN,TOTAL 0.3 MG/DL (0.1-1.0)
[2019-09-04 10:35] LABS: CREATININE SERUM 1.23 MG/DL (0.60-1.30)
== END 2019-10-29 09:30 | disposition home or self-care (01) ==
LOC: ONC 09:50
PROVIDERS: ATTEND Internal Medicine Hematology & Oncology
DX: Z51.0 Encounter for antineoplastic radiation therapy (principal); C21.1 Malignant neoplasm of anal canal; K64.9 Unspecified hemorrhoids; Z90.49 Acquired absence of other specified parts of digestive tract
CPT/HCPCS: 36591; 77336; 77386; 77417; 80048; 80053; 85025; 87324; 87449; 99213

== ENCOUNTER 2020-01-30 07:57 | Outpatient (RCR) | payer MEDICARE ==
[2019-11-07 10:20] LABS: BASOPHILS % (AUTO) 0 % (0-10); EOSINOPHILS # (AUTO) 0.2 10^3/uL (0.0-0.3); EOSINOPHILS % (AUTO) 3 % (0-10); HEMATOCRIT 36 % (40-54); HEMOGLOBIN 11.7 G/DL (13.3-17.7); LYMPHOCYTES # (AUTO) 1.5 X 10^3 (1.0-4.0); LYMPHOCYTES % (AUTO) 28 % (12-44); MEAN CORPUSCULAR HEMOGLOBIN 33 PG (25-34); MEAN CORPUSCULAR HGB CONC 32 G/DL (32-36); MEAN CORPUSCULAR VOLUME 102 FL (80-99); MEAN PLATELET VOLUME 11.4 FL (7.4-10.4); MONOCYTES # (AUTO) 0.5 X 10^3 (0.0-1.0); MONOCYTES % (AUTO) 10 % (0-12); NEUTROPHILS % (AUTO) 59 % (42-75); PLATELET COUNT 144 10^3/uL (130-400); WHITE BLOOD COUNT 5.2 10^3/uL (4.3-11.0)
[2019-11-07 10:54] LABS: BILIRUBIN,TOTAL 0.7 MG/DL (0.1-1.0); CALCIUM 9.3 MG/DL (8.5-10.1); CREATININE SERUM 1.38 MG/DL (0.60-1.30); POTASSIUM 4.2 MMOL/L (3.6-5.0); TOTAL PROTEIN 7.5 GM/DL (6.4-8.2)
== END 2020-02-05 | disposition home or self-care (01) ==
LOC: ONC 07:57
PROVIDERS: ATTEND Internal Medicine Hematology & Oncology
DX: C21.1 Malignant neoplasm of anal canal (principal); K64.9 Unspecified hemorrhoids; Z90.49 Acquired absence of other specified parts of digestive tract; Z45.2 Encounter for adjustment and management of vascular access device
CPT/HCPCS: 80053; 85025; G0463; 36591; 96523

== ENCOUNTER → 2020-03-12 | Outpatient (CLI) | payer MEDICARE | LOC: LABNPT 05:25 | PROVIDERS: ATTEND Family Medicine | DX: Z20.828 Contact with and (suspected) exposure to other viral communicable diseases (principal) | CPT/HCPCS: 87635 ==